=== PATIENT | female | born 1985 | race Two or more races ===

== ENCOUNTER → 2019-01-31 | Outpatient (CLI) | payer OTHER ==
[2019-01-31 12:49] LABS: Basophils # (auto) 0.1 uL; Basophils % (auto) 0.8 % (0.0-2.0); Eosinophils # (auto) 0.2 uL; Hemoglobin 14.2 g/dL (12.2-16.2); Lymphocytes % (auto) 24.3 % (10.0-50.0); Mean Corpuscular Hemoglobin 30.1 pg (28.0-32.0); Mean Corpuscular Hgb Conc. 33.8 g/dL (32.0-36.0); Mean Corpuscular Volume 88.9 fL (80.0-100.0); Monocytes # (auto) 0.3 uL; Neutrophils # (auto) 5.8 uL; Neutrophils % (auto) 68.9 % (37.0-80.0); Platelet Count (auto) 354 10^3/uL (140-450); Red Blood Cells 4.73 10^6/uL (4.0-5.20); Red Cell Distribution Width 12.7 % (11.8-14.3); White Blood Cell 8.4 10^3/uL (4.4-10.8)
[2019-01-31 13:05] LABS: Potassium 4.2 mmol/L (3.5-5.1)
[2019-01-31 13:13] LABS: Albumin 3.9 g/dL (3.4-5.0); BUN/Creatinine Ratio 14.3; Bilirubin, Total 0.6 mg/dL (0.2-1.0); Calcium 9.3 mg/dL (8.5-10.1); Total Protein 7.9 g/dL (6.4-8.2)
== END | disposition home or self-care (01) ==
LOC: LAB 12:19
PROVIDERS: ATTEND Internal Medicine
DX: E03.9 Hypothyroidism, unspecified (principal); E78.5 Hyperlipidemia, unspecified
CPT/HCPCS: 36415; 80053; 80061; 84443; 85025

== ENCOUNTER 2020-03-11 15:57 | Emergency (ER) | payer OTHER ==
[~2020-03-11] VITALS: Ht 162.6 cm; Wt 74.8 kg
[2020-03-11 16:14] VITALS: BP 132/88
== END 2020-03-11 16:39 | disposition home or self-care (01) ==
LOC: ER 15:57
DX: Z76.0 Encounter for issue of repeat prescription (principal); F41.9 Anxiety disorder, unspecified

== ENCOUNTER 2020-08-11 19:57 | Emergency (ER) | payer MEDICAID, OTHER ==
[~2020-08-11] VITALS: Ht 162.6 cm; Wt 77.1 kg
[2020-08-12 00:01] VITALS: BP 141/96
[2020-08-12] MEDS ORDERED: IBUPROFEN 800 MG TAB PO ONE (01:15)
== END 2020-08-12 02:11 | disposition home or self-care (01) ==
LOC: ER 20:03
DX: S46.911A Strain of unspecified muscle, fascia and tendon at shoulder and upper arm level, right arm, initial encounter (principal); F41.9 Anxiety disorder, unspecified; F32.9 Major depressive disorder, single episode, unspecified; X50.9XXA Other and unspecified overexertion or strenuous movements or postures, initial encounter; Y93.89 Activity, other specified; Y92.89 Other specified places as the place of occurrence of the external cause; Y99.8 Other external cause status
CPT/HCPCS: 73030

== ENCOUNTER 2022-11-30 03:58 | Emergency (ER) | payer MEDICAID ==
[~2022-11-30] VITALS: Ht 162.6 cm; Wt 79.5 kg
[2022-11-30 04:21] VITALS: PULSE 139; RESP 12; TEMP 99; O2SAT 96
[2022-11-30] MEDS ORDERED: SODIUM CHLORIDE 0.9% 1,000 ML IV ONE (04:30)
[2022-11-30] MEDS ORDERED: ceFAZolin 1GM/50ML 50 ML IV ONE (04:30)
[2022-11-30] MEDS ORDERED: TETANUS-DIPTH-ACEL PERTUSSIS 0.5ML SYR Tdap IM ONE (04:30)
[2022-11-30] MEDS ORDERED: ONDANSETRON HCL 4 MG/2 ML VIAL IV ONE ×2 (05:00→07:45)
[2022-11-30 05:31] LABS: Basophils # (auto) 0.1 10 ^3/uL (0-0.2); Basophils % (auto) 0.9 % (0.0-2.0); Eosinophils # (auto) 0 10 ^3/uL (0-0.8); Eosinophils % (auto) 0.3 % (0.0-7.0); Hematocrit 38.2 % (36.0-46.0); Lymphocytes # (auto) 1.4 10 ^3/uL (0.4-5.4); Lymphocytes % (auto) 12.8 % (10.0-50.0); Mean Corpuscular Hemoglobin 29.2 pg (28.0-32.0); Mean Corpuscular Volume 85.8 fL (80.0-100.0); Monocytes # (auto) 0.3 10 ^3/uL (0-1.3); Neutrophils # (auto) 8.8 10 ^3/uL (1.6-8.6); Nucleated Red Blood Cells % 0.1 %; Red Blood Cells 4.45 10^6/uL (4.0-5.20); Red Cell Distribution Width 14.1 % (11.8-14.3); White Blood Cell 10.5 10^3/uL (4.4-10.8)
[2022-11-30 05:32] LABS: Albumin 4.1 g/dL (3.4-5.0); Calcium 8.1 mg/dL (8.5-10.1)
[2022-11-30 05:35] LABS: BUN/Creatinine Ratio 10.4 (10.0-20.0); Bilirubin, Total 0.2 mg/dL (0.2-1.0); Total Protein 7.9 g/dL (6.4-8.2)
[2022-11-30 06:00] VITALS: O2SAT 97
[2022-11-30] MEDS: HYDROmorphone HCL 2 MG/ML VL/or syr IV ONE ×2 (06:05→07:41)
[2022-11-30 06:28] LABS: Potassium 2.8 mmol/L (3.5-5.1)
[2022-11-30] MEDS ORDERED: POTASSIUM CHL 20MEQ/100ML 100 ML IV ONE (06:45)
[2022-11-30] MEDS ORDERED: POTASSIUM CHL 20 Meq TABLET PO ONE (06:45)
[2022-11-30] MEDS ORDERED: CEPH250C PO (07:20)
[2022-11-30] MEDS ORDERED: PERCOT PO (07:20)
[2022-11-30] MEDS ORDERED: ZOFR4T PO (07:20)
[2022-11-30 07:41] VITALS: BP 124/81; RESP 14
[2022-11-30 08:00] VITALS: PULSE 125
== END 2022-11-30 09:26 | disposition home or self-care (01) ==
LOC: EDBD 03:58 → ER 03:58
DX: S01.411A Laceration without foreign body of right cheek and temporomandibular area, initial encounter (principal); E87.6 Hypokalemia; F41.9 Anxiety disorder, unspecified; F32.9 Major depressive disorder, single episode, unspecified; Z98.51 Tubal ligation status; W26.0XXA Contact with knife, initial encounter; Y93.89 Activity, other specified; Y92.89 Other specified places as the place of occurrence of the external cause; Y99.8 Other external cause status
CPT/HCPCS: 12013; 36415; 70487; 71045; 80053; 85025; 90471; 90715; 93005; 96365; 96366; 96367; 96375; 96376; 99285; J0690; J1170; J2405; J3480; J7030